=== PATIENT | male | born 1985 | race American Indian/Alaskan Native ===

== ENCOUNTER 2016-07-26 21:30 | Emergency (ER) | payer MEDICAID ==
[2016-07-26 21:52] VITALS: BP 132/92
== END 2016-07-27 05:26 | disposition left against medical advice (07) ==
LOC: ED 21:30
DX: Z76.0 Encounter for issue of repeat prescription (principal); F20.9 Schizophrenia, unspecified; F17.200 Nicotine dependence, unspecified, uncomplicated; Z53.21 Procedure and treatment not carried out due to patient leaving prior to being seen by health care provider